=== PATIENT | female | born 1935 | race Caucasian/White ===

== ENCOUNTER → 2019-10-28 | Outpatient (CLI) | payer OTHER ==
[~2019-10-28] MED LIST: ADVIL PO; AMLODIPINE-VAL1 EAC2 PO; APPEAREX2500 MCG PO; ASPIRIN81 M2 PO; B-12 INJECTIONS; BACTRIM 400-801 EACH PO; BACTRIM DS TAB1 EACH PO; BIOTIN2500 MCG PO; CALCIUM 600 +1 EAC1 PO; CLONIDINE0.1 PO; CORTAID28 GM; COUMADIN 5 MG TA5 M1 PO; COZAAR 25 MG TA25 M2 PO; CRANBERRY PO; DESOXIMETASONE60 GM TP; GABAPENTIN 100100 MG PO; GLUCOPHAGE850 MG PO; HYDROCHLOROTH12.5 MG PO; HYDROCHLOROTHIA25 M2 PO; HYDROCODON-ACE1 EACH PO; HYDROCODONE-AP1 EAC6 PO; HYDROXYZINE HCL10 M1 PO; IBUPROFEN 400400 M1 PO; IMODIUM MULTI-1 EACH PO; KEFLEX 250 MG PO; KEFLEX250 MG PO; MACRODANTIN100 MG PO; MEDROLDOSEPACK PO; METAMUCIL0.52 GM; MOBIC15 MG PO; NEURONTIN 300300 M1 PO; PREMARIN CREAM; PRILOSEC40 MG PO; TOPROL XL50 MG PO; TRAMADOL 50 MG50 MG PO; VITAMIN D-32000 UNIT PO; ZETIA10 MG PO; [UNRECOGNIZED DRUG - REMARK]; biotin PO
== END ==
LOC: SJCVCIMAG 10:18
PROVIDERS: ATTEND Internal Medicine Cardiovascular Disease
DX: I08.3 Combined rheumatic disorders of mitral, aortic and tricuspid valves (principal); I49.9 Cardiac arrhythmia, unspecified; I10 Essential (primary) hypertension; E78.5 Hyperlipidemia, unspecified; D68.59 Other primary thrombophilia; Z86.711 Personal history of pulmonary embolism; Z86.718 Personal history of other venous thrombosis and embolism

== ENCOUNTER → 2021-04-15 | Outpatient (CLI) | payer OTHER | LOC: SJCVCIMAG 08:46 | PROVIDERS: ATTEND Internal Medicine Cardiovascular Disease | DX: R94.31 Abnormal electrocardiogram [ECG] [EKG] (principal); I08.8 Other rheumatic multiple valve diseases; I10 Essential (primary) hypertension; E78.00 Pure hypercholesterolemia, unspecified; R60.0 Localized edema; R93.1 Abnormal findings on diagnostic imaging of heart and coronary circulation; R06.00 Dyspnea, unspecified; E11.9 Type 2 diabetes mellitus without complications; Z86.718 Personal history of other venous thrombosis and embolism; Z79.84 Long term (current) use of oral hypoglycemic drugs; Z79.899 Other long term (current) drug therapy ==

== ENCOUNTER → 2021-05-17 | Outpatient (CLI) | payer OTHER | LOC: SJCVCIMAG 07:08 | PROVIDERS: ATTEND Internal Medicine Cardiovascular Disease | DX: M79.89 Other specified soft tissue disorders (principal); M79.604 Pain in right leg; M79.605 Pain in left leg ==